=== PATIENT | female | born 2005 | race Hispanic/Latino ===

== ENCOUNTER 2023-09-01 05:59 | Emergency (ER) | payer OTHER ==
[2023-09-01 07:29] LABS: Specific Gravity > 1.030 (1.005-1.030)
--- NOTE | 2023-09-01 07:33 | EDPHYS ---
Physician Documentation [facility] Name: Chrystal Alaniz Age: 18 yrs Sex: Female : 2005 Arrival Date: 09/01/2023 Time: 05:59 Bed IW1 Private MD: ED Physician Carlos Alberto Gao HPI: 09/01 06:31 This 18 yrs old Female presents to ER via Unassigned with complaints of Ear sp4 Pain. 06:33 18-year-old female brought in by her mother for acute onset of right earache on sp4 awakening this morning. Patient did not take any medications prior to arrival. Denied any fever reported sore throat. . RN SOCIAL SERVICES: 07:14 LMP 08/25/2023, unknown iw Historical: - Allergies: 07:13 No Known Allergies; iw - Home Meds: 07:13 None [Active]; iw - PMHx: 07:13 None; iw - PSHx: 07:13 None; iw - Immunization history:: Client reports receiving the 2nd dose of the Covid vaccine. - Social history:: Smoking status: Patient denies any tobacco usage or history of. - Family history:: not pertinent. ROS: 06:33 Constitutional: Negative for fever, chills, and weight loss, ENT: Positive right ear sp4 pain positive sore throat. 06:33 All other systems are negative, Exam: 06:33 Constitutional: This is a well developed, well nourished patient who is awake, alert, sp4 and in no acute distress. Head/Face: Normocephalic, atraumatic. Eyes: Pupils equal round and reactive to light, extra-ocular motions intact. Lids and lashes normal. Conjunctiva and sclera are not injected. Cornea within normal limits. Periorbital areas with no swelling, redness, or edema. ENT: Nares patent. No nasal discharge, no septal abnormalities noted. Tympanic membranes -left and right TM appear opacified indicative of bilateral otitis media. Ear canals are clear. Bilateral pharyngeal erythema and tonsillar enlargement. Neck: Trachea midline, no thyromegaly or masses palpated, and no cervical lymphadenopathy. Supple, full range of motion without nuchal rigidity, or vertebral point tenderness. Chest/axilla: Normal chest wall appearance and motion. Nontender with no deformity. No lesions are appreciated. Cardiovascular: Regular rate and rhythm with a normal S1 and S2. No gallops, murmurs, or rubs. Normal PMI, no JVD. No pulse deficits. Respiratory: Lungs have equal breath sounds bilaterally, clear to auscultation and percussion. No rales, rhonchi or wheezes noted. No increased work of breathing, no retractions or nasal flaring. Abdomen/GI: Soft, non-tender, with normal bowel sounds. No distension or tympany. No guarding or rebound. No evidence of tenderness throughout. Back: No spinal tenderness. No costovertebral tenderness. Skin: Warm, dry with normal turgor. Normal color with no rashes, no lesions, and no evidence of cellulitis. MS/ Extremity: Pulses equal, no cyanosis. Neurovascular intact. Full, normal range of motion. Neuro: Awake and alert, GCS 15, oriented to person, place, time, and situation. Cranial nerves II-XII grossly intact. Motor strength 5/5 in all extremities. Sensory grossly intact. Psych: Awake, alert, with orientation to person, place and time. Behavior, mood, and affect are within normal limits Vital Signs: 07:14 BP 113 / 63; Pulse 53; Resp 16; Pulse Ox 100% on R/A; Weight 99.79 kg; Height 5 ft. 5 iw in. ; 07:14 Body Mass Index 36.61 (99.79 kg, 165.1 cm) iw MDM: 06:34 Differential diagnosis: otitis media, otitis externa, ruptured TM, foreign body, acute sp4 otalgia, cerumen impaction. Data reviewed: vital signs, nurses notes, lab test result(s), UPT:. ED course: Acute otitis media will treat with Rocephin IM and cephalexin twice a day for 10 days.. 06:39 Patient medically screened. sp4 07:33 ED course: test is negative. Patient stable for discharge home. Exam sp4 consistent with acute right otitis media also mild degree of pharyngitis. 09/01 06:32 Order name: Test, Urine; Complete Time: 07:31 sp4 Administered Medications: 07:45 Drug: Rocephin (cefTRIAXone) IM 1 grams IM once Route: IM; Site: right ventrogluteal; iw 07:45 Drug: Acetaminophen-Codeine PO (300 mg-30 mg) 2 tabs PO once; RASS on ADMIN: Combtv4, iw Very Agttd3, Agttd2, Rstlss1, AlertClm0, Drwsy-1, Lt Sdtn-2, Mod Sdtn-3, Dp Sdtn-4, UnArsble-5 Route: PO; 07:57 Not Given (Other Intervention Used): [id number] mg IM once iw Disposition Summary: 09/01/23 07:32 Discharge Ordered Notes: Location: Home sp4 Problem: new sp4 Symptoms: have improved sp4 Condition: Stable sp4 Diagnosis - Acute serous otitis media, recurrent, right ear sp4 - Acute suppurative otitis media without spontaneous rupture of ear drum, recurrent, sp4 right ear Followup: sp4 - With: Private Physician - When: 7 - 10 days - Reason: Recheck today's complaints Discharge Instructions: - Discharge Summary Sheet sp4 - Otitis Media, Adult, Icjj-mx-Oata sp4 Forms: - Work release form iw - Patient Portal Instructions sp4 Prescriptions: - Cephalexin 500 mg Oral Capsule - take 1 capsule ORAL route every 12 hours for 10 days; 20 capsule; Refills: 0, sp4 Product Selection Permitted - Ibuprofen 600 mg Oral Tablet - take 1 tablet ORAL route every 6 hours As needed take with food; 30 tablet; sp4 Refills: 0, Product Selection Permitted Signatures: Dispatcher [employer] Nohemi Akins, RN RN iw Carlos Alberto Gao MD MD sp4
--- NOTE | 2023-09-01 07:33 | ER ---
Nurse's Notes [facility] Name: Chrystal Alaniz Age: 18 yrs Sex: Female : 2005 Arrival Date: 09/01/2023 Time: 05:59 Bed IW1 Private MD: Diagnosis: Acute serous otitis media, recurrent, right ear;Acute suppurative otitis media without spontaneous rupture of ear drum, recurrent, right ear Presentation: 09/01 07:12 Chief complaint: Patient states: right sided ear pain X 2 days. Coronavirus screen: At this time, the client does not indicate any symptoms associated with coronavirus-19. Ebola Screen: Patient negative for fever greater than or equal to 101.5 degrees Fahrenheit, and additional compatible Ebola Virus Disease symptoms Patient denies exposure to infectious person. Patient denies travel to an Ebola-affected area in the 21 days before illness onset. No symptoms or risks identified at this time. Initial Sepsis Screen: Does the patient meet any 2 criteria? No. Patient's initial sepsis screen is negative. Does the patient have a suspected source of infection? No. Patient's initial sepsis screen is negative. Risk Assessment: Do you want to hurt yourself or someone else? Patient reports no desire to harm self or others. Onset of symptoms was August 30, 2023. 07:12 Method Of Arrival: Ambulatory 07:12 Acuity: JHONNY 4 iw [employer] MANAGER: 07:14 LMP 08/25/2023, unknown iw Historical: - Allergies: 07:13 No Known Allergies; iw - Home Meds: 07:13 None [Active]; iw - PMHx: 07:13 None; iw - PSHx: 07:13 None; iw - Immunization history:: Client reports receiving the 2nd dose of the Covid vaccine. - Social history:: Smoking status: Patient denies any tobacco usage or history of. - Family history:: not pertinent. Screenin:28 [facility] ED Fall Risk Assessment (Adult) Score/Fall Risk Level 0 - 2 = Low Risk. Abuse iw screen: Denies threats or abuse. Denies injuries from another. Nutritional screening: No deficits noted. Tuberculosis screening: No symptoms or risk factors identified. Assessment: 07:27 General: Appears in no apparent distress. Behavior is calm, cooperative. Pain: iw Complains of pain in right ear. Neuro: Level of Consciousness is awake, alert, obeys commands, Oriented to person, place, time, situation, Moves all extremities. Full function. Cardiovascular: Patient's skin is warm and dry. Respiratory: Respiratory effort is even, unlabored, Respiratory pattern is regular. GI: No signs and/or symptoms were reported involving the gastrointestinal system. EENT: Reports pain in right ear. Derm: Skin is intact, is healthy with good turgor. Musculoskeletal: Range of motion: intact in all extremities. Vital Signs: 07:14 BP 113 / 63; Pulse 53; Resp 16; Pulse Ox 100% on R/A; Weight 99.79 kg; Height 5 ft. 5 iw in. ; 07:14 Body Mass Index 36.61 (99.79 kg, 165.1 cm) iw ED Course: 06:02 Patient arrived in ED. jj6 06:26 Carlos Alberto Gao MD is Attending Physician. sp4 07:13 Triage completed. iw 07:18 Test, Urine Sent. bc6 07:25 Nohemi Gregory, RN is Primary Nurse. iw 07:28 Patient has correct armband on for positive identification. iw 07:51 No provider procedures requiring assistance completed. Patient did not have IV access iw during this emergency room visit. 07:51 Arm band placed on. iw 07:52 Provided Education on: . iw Administered Medications: 07:45 Drug: Rocephin (cefTRIAXone) IM 1 grams IM once Route: IM; Site: right ventrogluteal; iw 07:45 Drug: Acetaminophen-Codeine PO (300 mg-30 mg) 2 tabs PO once; RASS on ADMIN: Combtv4, iw Very Agttd3, Agttd2, Rstlss1, AlertClm0, Drwsy-1, Lt Sdtn-2, Mod Sdtn-3, Dp Sdtn-4, UnArsble-5 Route: PO; 07:57 Not Given (Other Intervention Used): [id number] mg IM once iw Medication: 07:52 VIS not applicable for this client. iw Outcome: 07:32 Discharge ordered by . sp4 07:51 Discharged to home ambulatory, with family, iw 07:51 Condition: good 07:51 Discharge instructions given to patient, Instructed on discharge instructions, follow up and referral plans. Demonstrated understanding of instructions, follow-up care, medications, Prescriptions given X 07:52 Patient left the ED. iw Signatures: Nohemi Gregory RN RN Bita Alcaraz jj6 Christa Brown bc6 Carlos Alberto Gao MD MD sp4
[2023-09-01] MEDS ORDERED: LIDOCAINE 1% MPF 5 ML VIAL ONE (07:47)
[2023-09-01] MEDS ORDERED: CEFTRIAXONE 1000 MG/VIAL ONE (07:47)
[2023-09-01] MEDS ORDERED: CODEINE 30MG/APAP 300MG TAB ONE (07:48)
[2023-09-01 07:57] VITALS: BP 113/63; O2SAT 100
== END 2023-09-01 07:52 | disposition home or self-care (01) ==
LOC: ER 05:59
DX: H65.04 Acute serous otitis media, recurrent, right ear (principal); H66.004 Acute suppurative otitis media without spontaneous rupture of ear drum, recurrent, right ear
CPT/HCPCS: 81025; 96372; 99284; J2001; J0696